=== PATIENT | female | born 1980 | race Caucasian/White ===

== ENCOUNTER 2020-08-16 09:35 | Outpatient (CLI) | payer BC, SELFPAY ==
--- NOTE | ~2020-08-16 | MM_ITS ---
EXAMINATION: MM screening abdias BI w freddy HISTORY: Screening TECHNIQUE: Craniocaudal and mediolateral oblique 3-D tomosynthesis images were obtained and synthetic 2-D images were generated. CAD analysis was submitted and interpreted. COMPARISON: No prior mammogram is available for comparison at this institution. BREAST PARENCHYMAL COMPOSITION: The breasts are heterogeneously dense, which may obscure small masses . FINDINGS: There is no evidence of suspicious mass, calcification, or architectural distortion to sugg est malignancy in either breast. There has been no suspicious interval change. IMPRESSION: 1. No mammographic evidence of malignancy. 2. Recommend routine screening mammography in one year. BI-RADS Category 1: Negative Reviewed, dictated and finalized at location A.
== END 2020-08-16 09:36 | disposition home or self-care (01) ==
LOC: ANHIMG 09:37
PROVIDERS: PCP Family Medicine; Visit Provider Obstetrics & Gynecology
DX: Z12.31 Encounter for screening mammogram for malignant neoplasm of breast (principal)
CPT/HCPCS: 77063; 77067

== ENCOUNTER 2021-12-26 10:46 | Outpatient (CLI) | payer BC, SELFPAY ==
--- NOTE | ~2021-12-26 | MM_ITS ---
EXAMINATION: MM screening abdias BI w freddy HISTORY: Screening mammogram TECHNIQUE: Craniocaudal and mediolateral oblique 3-D tomosynthesis images were obtained and synthetic 2-D images were generated. Bilateral rotated lateral CC views. CAD analysis was submitted and interp reted. COMPARISON: 08/16/2020 bilateral screening mammogram BREAST PARENCHYMAL COMPOSITION: The breasts are heterogeneously dense, which may obscure small masses . FINDINGS: Circumscribed lymph nodes in upper outer right breast. There is no evidence of suspicious mass, calcification, or architectural distortion to suggest malignancy in either breast. There has b een no suspicious interval change. IMPRESSION: 1. No mammographic evidence of malignancy. 2. Recommend routine screening mammography in one year. BI-RADS Category 2: Benign finding(s). Reviewed, dictated and finalized at location A. ING MACHINE PILOT CAN ROUTER
== END 2021-12-26 10:47 | disposition home or self-care (01) ==
LOC: ANHIMG 10:49
PROVIDERS: PCP Family Medicine; Visit Provider Obstetrics & Gynecology
DX: Z12.31 Encounter for screening mammogram for malignant neoplasm of breast (principal)
CPT/HCPCS: 77063; 77067

== ENCOUNTER 2024-08-25 09:16 | Outpatient (CLI) | payer BC, SELFPAY ==
--- NOTE | ~2024-08-25 | MM_ITS ---
EXAMINATION: MM screening abdias BI w freddy HISTORY: Screening TECHNIQUE: Craniocaudal and mediolateral oblique 3-D tomosynthesis images were obtained and synthetic 2-D images were generated. CAD analysis was submitted and interpreted. COMPARISON: Comparison to multiple prior studies sequentially, with oldest reviewed study dated 08/01. BREAST PARENCHYMAL COMPOSITION: Dense: The breasts are extremely dense, which lowers the sensitivity of mammography. FINDINGS: There is no evidence of suspicious mass, calcification, or architectural distortion to sugg est malignancy in either breast. There has been no suspicious interval change. IMPRESSION: 1. No mammographic evidence of malignancy. 2. Recommend routine screening mammography in one year. BI-RADS Category 1: Negative Reviewed, dictated and finalized at location B.
== END 2024-08-25 09:17 | disposition home or self-care (01) ==
LOC: ANHIMG 09:17
PROVIDERS: Visit Provider Nurse Practitioner Obstetrics & Gynecology
DX: Z12.31 Encounter for screening mammogram for malignant neoplasm of breast (principal)
CPT/HCPCS: 77063; 77067

== ENCOUNTER 2025-04-06 09:01 | Outpatient (CLI) | payer BC, SELFPAY ==
--- NOTE | ~2025-04-06 | US_ITS ---
EXAMINATION: US pelvic complete w TV INDICATION: Left ovarian cyst seen on CT Comparison:No prior studies for comparison. TECHNIQUE: Multiple transabdominal and endovaginal sonographic images of the pelvis performed. FINDINGS: The uterus measures 8.3 x 4.1 x 5.1 cm. The endometrial complex measures 6 mm. The right ovary measures 2 x 2.1 x 1.9 cm and the left ovary measures 3.1 x 1.5 x 1.9 cm. There are s mall cysts of the right ovary, largest measuring 1.6 cm. There are small follicles in each ovary. Nor mal doppler signal in both ovaries. There is no free fluid in the pelvis. There are no abnormal masses seen on either side. IMPRESSION: 1. Small simple right ovarian cysts, largest measuring 1.6 cm. Reviewed, dictated and finalized at location A.
== END 2025-04-06 09:02 | disposition home or self-care (01) ==
LOC: GOSHIMG 09:02
PROVIDERS: Visit Provider Nurse Practitioner Obstetrics & Gynecology
DX: N83.291 Other ovarian cyst, right side (principal)
CPT/HCPCS: 76830; 76856

== ENCOUNTER 2025-08-31 08:52 | Outpatient (CLI) | payer BC, SELFPAY ==
--- NOTE | ~2025-08-31 | MM_ITS ---
EXAMINATION: MM screening abdias BI w freddy HISTORY: Screening TECHNIQUE: Craniocaudal and mediolateral oblique 3-D tomosynthesis images were obtained and synthetic 2-D images were generated. CAD analysis was submitted and interpreted. COMPARISON: Comparison to multiple prior studies sequentially, with oldest reviewed study dated 08/16/2020. BREAST PARENCHYMAL COMPOSITION: Dense: The breasts are extremely dense, which lowers the sensitivity of mammography. FINDINGS: There is no evidence of suspicious mass, calcification, or architectural distortion to suggest malignancy in either breast. There has been no suspicious interval change. IMPRESSION: 1. No mammographic evidence of malignancy. 2. Recommend routine screening mammography in one year. BI-RADS Category 1: Negative Reviewed, dictated and finalized at location C.
--- OUTSIDE RECORDS SUMMARY | 2025-08-31 09:09 | XMS_ITS | Clinical Summary ---
Author Organization [facility] Address [address] [place] [address] Phone Care Team Providers Care Linux Support Engineer Name Role Phone Jeremiah Lees MD Unavailable [phone] Elmira Nielsen APRN, CIGAR PACKER Primary Care Provider + Colten Santa MD Unavailable Allergies No known active allergies Medications Cetirizine HCl 10 MG Capsule Take by mouth. Active Multiple Vitamin (MULTI-VITAMINS ) Tablet Take 1 Tab by mouth. Active VITAMIN D PO Take by mouth. Active melatonin 3 MG Tablet Take 3 mg by mouth nightly. Active Skyrizi Pen 150 MG/ML Solution Auto-injector every 90 days. 2 Active baclofen (LIORESAL) 10 MG Tablet 2 times daily. 2 Active Psyllium (METAMUCIL PO) Take by mouth as needed. Active minoxidil (LONITEN) 2.5 MG Tablet Take 1.25 mg by mouth every morning. 4 Active losartan (COZAAR) 25 MG TabletIndicatio ns:Hypertension , unspecified type TAKE 1 TABLET BY MOUTH EVERY DAY 90 Tablet 1 5 Active Mirabegron ER (Myrbetriq) 50 MG TABLET SR 24 HR Take 50 mg by mouth daily. 90 Tablet 3 5 Active sertraline (ZOLOFT) 50 MG TabletIndicatio ns:Anxiety TAKE 1 TABLET BY MOUTH EVERY DAY 90 Tablet 1 5 Active sertraline (ZOLOFT) 50 MG TabletIndicatio ns:Anxiety Take 1 Tablet by mouth daily. 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 Chronic seasonal allergic rhinitis due to pollen 09/30/2017 Constipation 09/30/2017 Weakness of both lower extremities 03/31/2017 Well adult exam 03/31/2017 Encounters Date Type Department Care Team Description 08/17[facility] [place] [facility] [place] [address] Elmira Nielsen APRN, CIGAR PACKER Medication Refill 06/15/2025 9:45 AM CDT Office Visit [facility] [place] [address] [place] [address] Elmira Nielsen APRN, CIGAR PACKER Essential hypertension (Primary Dx); Anxiety; Hereditary spastic paraparesis (HCC); Urge incontinence Discharge Disposition: Discharged to home or Selfcare 06/15/2025 Travel from Last 3 Months Immunizations Immunization Administration Dates Next Due Covid-19, Mrna, Lnp-s, Pf, 3 0 Mcg/0.3 Ml Dose ([facility]) 02/16/2021,01/26/2021 Influenza Seasonal, Intrader mal, Preservative Free 11/16/2012 Influenza Vaccine 08/09/2017,09/18/2016,09/05/20 15 Influenza Vaccine greater than 3 yrs 08/20/2020, 07/02/2014 Influenza Vaccine, MDCK,quad rivalent, pres free 08/20/2020 Influenza Vaccine, Quadrivalent, PF 09/01,08/28/2021,08/22/2019,2017 Influenza, Seasonal, Injecta ble, Undefined 07/17/2014,07/02/2014,08/23/2013 RHO D IG FULL DOSE 300 MCG IM 05/29/2016 TDAP Vaccine 05/30/2016,10/03/2013 Family History Medical History Relation Name Comments No Known Problems Brother 1 No Known Problems Brother 2 Cancer Father Diabetes Father HSP Father Prostate Cancer Father Breast Cancer Maternal Aunt Cancer Maternal Aunt breast Heart Attack Mother Cancer Paternal Grandfather Heart Attack Paternal Grandmother Other-comment Paternal Grandmother No Known Problems Son 1 No Known Problems Son 2 Relation Name Status Comments Brother 1 Alive Brother 2 Alive Father Alive Maternal Aunt Maternal Grandfather Maternal Grandmother Mother Alive Paternal Grandfather Paternal Grandmother Son 1 Alive Son 2 Alive Social History Tobacco Use Types Packs/Day Years Used Date Smoking Tobacco: Never Smokeless Tobacco: Never Alcohol Use Standard Drinks/Week Comments No 0 (1 standard drink = 0.6 oz pur e alcohol) PHQ-2 Answer Date Recorded Total Score - Questions 1-9 0 06/01 Education Answer Date Recorded What is the highest level of school you have completed or the highest degree you have received? Bachelor's degree (e.g., BA, AB, BS) 08/26/2023 Sexually Active Control Partners Comments Yes Male Comments No Sex and Gender Information Value Date Recorded Sex Assigned at Female 11/29/2024 6:18 AM AGRICULTURAL RESEARCHER Legal Sex Female 10:06 PM CDT Gender Identity Female 11/29/2024 6:18 AM AGRICULTURAL RESEARCHER Sexual Orientation Not on file Last Filed Vital Signs Vital Sign Reading Time Taken Comments Blood Pressure 116/84 06/15/2025 9:42 AM CDT Pulse 59 06/15/2025 9:42 AM CDT Temperature 36.4 C (97.5 F) 06/15/2025 9:42 AM CDT Respiratory Rate 18 06/15/2025 9:42 AM CDT Oxygen Saturation 99% 06/15/2025 9:42 AM CDT Inhaled Oxygen Concentration - - Weight 56.4 kg (124 lb 6.4 oz) 06/15/2025 9:42 A M CDT Height 157.5 cm (5' 2) 06/15/2025 9:42 AM CDT Body Mass Index 22.75 06/15/2025 9:42 AM CDT Plan of Treatment Upcoming Encounters Date Type Department Care Team (Late st Contact Info) Description 12/14/2025 9:30 AM AGRICULTURAL RESEARCHER [facility] Visit [facility] [place] [address] [facility] [address] Elmira Nielsen, PRACTICE NURSE, CIGAR PACKER [address] [facility] [address] 04/19/2026 10:00 AM CDT Office Visit [facility] [address] [place] [address] Jeremiah Lees MD [address], [address] [address] Health Maintenance Due Date Last Done Comments Hepatitis B Immunization (1 of 3 - 19+ 3-dose series) 1998 Mammogram 12/26/2022 12/26/2021, 08/16/2020 Cologuard 2024 Immunochemical Fecal Occult Blood 2024 Influenza Immunization (#1) 07/02/202509/01, 08/28/2021, 08/20/2020, Additional history exists SARS-COV-2 Immunization (2024- season) 2025 11/16/2021, 02/16/2021, 01/26/2021 Td Immunization Every 10 Years (Adults With 1 Tdap) 05/30/2026 05/30/2016, 10/03/2013 Pap Smear 03/16/2028 03/16/2025, 07/03/2020 Cervical Cancer Screening (CCS) 03/16/2030 HPV/Cotest 03/16/2030 03/16/2025 Colonoscopy 12/28/2034 12/28/2024, 12/28/2024 Colorectal Cancer Screening 12/28/2034 Respiratory Syncytial Virus (RSV) Immunization (Adult) (1 - 1-dose 75+ series) 2054 Discussion re Starting/Frequency of Mammograms Completed 12/26/2021, 08/16/2020 Hepatitis C Virus (HCV) Screening Completed 01/08/2025 Human Papillomavirus (HPV) Immunization Aged Out No longer eligible based on patient's age to complete this topic Meningococcal Immunization (ACWY) Aged Out No longer eligible based on patient's age to complete this topic Pneumococcal Immunization Combined Aged Out No longer eligible based on patient's age to complete this topic Rotavirus Immunization Aged Out No lo nger eligible based on patient's age to complete this topic Procedures Procedure Name Priority Date/Time Associated Diagnosis Comments HUMAN PAPILLOMA VIRUS (HPV) 03/16/2025 12:00 AM CDT PATHOLOGY CYTOLOGY CITY CONTROLLER 03/16/2025 12:00 AM CDT HEPATITIS C ANTIBODY Routine 01/08/2025 8:22 AM CDT Need for hepatitis C screening test MAMMOGRAM BILATERAL GENERIC 12/26/2021 12:00 AM AGRICULTURAL RESEARCHER from Last 3 Months or Most Recently Relevant to Health Maintenance Results * PATHOLOGY CYTOLOGY CITY CONTROLLER (03/16/2025 12:00 AM CDT) 03/16/2025 us Provider Scan PATHOLOGY/CYTOLOGY ORDERABLES Fi nal Result SCAN * HUMAN PAPILLOMA VIRUS (HPV) (03/16/2025 12:00 AM CDT) 03/16/2025 us Provider Scan LAB SEND OUTS Final Result SCAN * HEPATITIS C ANTIBODY (01/08/2025 8:22 AM CDT) hepatitis C antibody 0.25 <1 S/CO 01/08/2025 2:43 PM CDT [facility] Comment: Signal/Cutoff ratio < 0.79 is Nondetected Signal/Cutoff ratio 0.80-0.99 is Grayzone Signal/Cutoff ratio > 0.99 is Detected Supplemental assays are recommended if signal/cutoff ratio is >/=1.00. Signal/cutoff ratio result >/= 5.00 is 97% predictive of positivity for recombinant immunoblot assay (RIBA) and will be reported to the [place] Department of Public [facility] as required. Blood Venipuncture / Unknown 01/08/2025 8:22 AM CDT 01/08/2025 8:31 AM CDT us Elmira Nielsen APRN, CNP CHEMISTRY ORDERABLES Fin al Result Performing Organization Address City/[facility]/ZIP Co de Phone Number [facility] [address] [place] [address], [place] * MAMMOGRAM BILATERAL MISCELLANEOUS (12/26/2021 12:00 AM AGRICULTURAL RESEARCHER) 12/26/2021 us Not On File Provider IMG MAMMO ORDERABLES Final Result SCAN from Last 3 Months or Most Recently Relevant to Health Maintenance Insurance [facility] Advance Directives * Full Code (Latest Code Status on File) Date Activated Date Inactivated Comments 05/28/2016 5:46 AM 05/30/2016 3:00 PM CPR-Full Rodrigo atment: FULL ARREST: Attempt Resuscitation/CPR wit intubation and mechanical ventilation. PRE-ARREST: Use entire range of life support measures to stabilize the patient. Care Teams Linux Support Engineer Relationship Specialty Start Date End Date Elmira Nielsen APRN, CINTHIA [address] [place] [address] PCP - General Advanced Practice Nurse 03/03/24 Jeremiah Lees MD [address]2 [facility] [address] [place] [address] Consulting Physician Urology 08/12/22 Colten Santa MD [address]2 [facility] [address] [place] [address] Consulting Physician Colon and Rectal Surgery 10/23/24
--- OUTSIDE RECORDS SUMMARY | 2025-08-31 09:09 | XMS_ITS | Encounter Summary ---
Author Organization [facility] Address [address] [place] [address] Phone Care Team Providers Care Nuclear Medical Technologist Name Role Phone Zoe Patel MD Primary Care Provider Jessi Wilson MD Unavailable [phone] Jeremiah Lees MD Unavailable [phone] Elmira Nielsen COLOR ADVISER, PEN OR PENCIL ASSEMBLY MACHINE OPERATOR Primary Care Provider + Colten Santa MD Unavailable Reason for Visit * Reason Comments Medication Refill Encounter Details Date Type Department Care Team (Late st Contact Info) Description 06/24/2022 [facility]ill [facility] [address] [facility] [place] [address] Nhan Owens MD [address]2 [facility], [address] [address] Medication Refill Social History Tobacco Use Types Packs/Day Years Used Date Smoking Tobacco: Never Smokeless Tobacco: Never Alcohol Use Standard Drinks/Week Comments No 0 (1 standard drink = 0.6 oz pur e alcohol) PHQ-2 Answer Date Recorded Total Score - Questions 1-9 0 /11/2021 Sexually Active Control Partners Comments Yes Male Comments No Sex and Gender Information Value Date Recorded Sex Assigned at Female 11/29/2024 6:18 AM LABOR EMPLOYMENT ASSOCIATE Legal Sex Female 10:06 PM CDT Gender Identity Female 11/29/2024 6:18 AM LABOR EMPLOYMENT ASSOCIATE Sexual Orientation Not on file documented as of this encounter Miscellaneous Notes * Telephone Encounter - Nhan Owens MD - 07/02/2022 9:03 AM CDT Patient last seen by Dr. Hahn in 05/2021. Recommend follow-up in the office before refilling oxybutynin. * Telephone Encounter - Libby Rangel RN - 06/25/2022 2:16 PM CDT Medication failed the protocol, provider to review and approve the medication order if appropriate. Requested Prescriptions Pending Prescriptions Disp Refills oxybutynin (DITROPAN) 5 MG Tablet [Pharmacy Med Name: OXYBUTYNIN 5 MG TABLET] 180 Tablet 1 Sig: TAKE 1 TABLET BY MOUTH TWICE A DAY Urinary Anticholinergics Protocol Failed - 06/24/2022 7:52 PM Failed - GFR greater than or equal to 30 in past 12 months No results found for: GFRNA Passed - Visit with relevant provider in past 12 months or upcoming 90 days Recent Visits Date Type Provider Dept 02/19/22 [facility] Office Visit Zoe Patel MD [facility] [place] Showing recent visits within past 365 days and meeting all other requirements Future Appointments Date Type Provider Dept 08/20/22 Appointment Zoe Patel MD [facility] Showing future appointments within next 90 days and meeting all other requirements documented in this encounter Plan of Treatment Upcoming Encounters Date Type Department Care Team (Late st Contact Info) Description 12/14/2025 9:30 AM LABOR EMPLOYMENT ASSOCIATE Office Visit [facility] - Family Medicine - [place] [address] [place] [address] Elmira Nielsen, COLOR ADVISER, PEN OR PENCIL ASSEMBLY MACHINE OPERATOR [address] [place] [address] 04/19/2026 10:00 AM CDT Office Visit [facility] [address] [place] [address] Jeremiah Lees MD [address] [facility] [address] [place] [address] documented as of this encounter Visit Diagnoses Diagnosis Urge incontinence documented in this encounter Additional Health Concerns Infection Onset Date Last Indicated Resolved Time Respiratory Rule-Out 11/29/2024 11/29/2024 025 8:55 AM LABOR EMPLOYMENT ASSOCIATE COVID - 19 11/29/2024 11/29/2024 11/29/2024 8:55 AM LABOR EMPLOYMENT ASSOCIATE Influenza 11/29/2024 11/29/2024 12/06/2024 12:1 6 AM LABOR EMPLOYMENT ASSOCIATE Assessment Noted Time PHQ-9 Depression Total Score: 0 02/20/20 22 8:00 AM CDT documented as of this encounter Care Teams Nuclear Medical Technologist Relationship Specialty Start Date End Date Zoe Patel MD PCP - General Family Medicine 03/31/17 03/02/24 Elmira Nielsen, COLOR ADVISER, PEN OR PENCIL ASSEMBLY MACHINE OPERATOR [address] [place] [address] PCP - General Advanced Practice Nurse 03/03/24 Jessi Wlison MD Obstetrics & Gynecology 07/25/19 Jeremiah Lees MD [address] [address] [place] [address] Consulting Physician Urology 08/12/22 Colten Santa MD [address] [place] [id number] Consulting Physician Colon and Rectal Surgery 10/23/24 documented as of this encounter
--- OUTSIDE RECORDS SUMMARY | 2025-08-31 09:09 | XMS_ITS | Encounter Summary ---
Author Organization [facility] Address [address] [place] [address] Phone Care Team Providers Care Manager Brand Name Role Phone Zoe Patel MD Primary Care Provider Jessi Wilson MD Unavailable [phone] Jeremiah Lees MD Unavailable [phone] Elmira Nielsen APRN, ARABIC LINGUIST Primary Care Provider + Colten Santa MD Unavailable Reason for Visit * Reason Comments Medication Refill Encounter Details Date Type Department Care Team (Late st Contact Info) Description 06/22/2023 Refill [facility] - Family [facility] [address] [place] [id number] [place] [address] [place] [address] Medication Refill Social History Tobacco Use Types Packs/Day Years Used Date Smoking Tobacco: Never Smokeless Tobacco: Never Alcohol Use Standard Drinks/Week Comments No 0 (1 standard drink = 0.6 oz pur e alcohol) PHQ-2 Answer Date Recorded Total Score - Questions 1-9 0 01/31 Sexually Active Control Partners Comments Yes Male Comments No Sex and Gender Information Value Date Recorded Sex Assigned at Female 11/29/2024 6:18 AM TEST ENG Legal Sex Female 10:06 PM CDT Gender Identity Female 11/29/2024 6:18 AM TEST ENG Sexual Orientation Not on file documented as of this encounter Miscellaneous Notes * Telephone Encounter - Luciana Mei RN - 06/22/2023 11:19 AM CDT Medication failed the protocol, provider to review and approve the medication order if appropriate. Requested Prescriptions Pending Prescriptions Disp Refills losartan (COZAAR) 25 MG Tablet [Pharmacy Med Name: LOSARTAN POTASSIUM 25 MG TAB] 90 Tablet 1 Sig: TAKE 1 TABLET BY MOUTH EVERY DAY ARB Protocol Failed - 06/22/2023 6:33 AM Failed - Serum potassium on record in past 12 months No results found for: POTASSIUM, POCTK Failed - GFR on record in past 12 months No results found for: GFRNA Passed - BP on record in the past year Clinician-entered: BP Readings from Last 3 Encounters: 02/25/23 108/68 08/20/22 118/72 08/14/22 100/78 Patient-entered: No data recorded Passed - No positive test in the past 12 months or most recent test was negative Passed - Visit with relevant provider in past year or upcoming 90 days Recent Visits Date Type Provider Dept 02/25/23 Office Visit Zoe Patel MD [facility] 08/20/22 Office Visit Zoe Patel MD [facility] Showing recent visits within past 365 days and meeting all other requirements Future Appointments Date Type Provider Dept 08/26/23 Appointment Zoe Patel MD [facility] Showing future appointments within next 90 days and meeting all other requirements Passed - No active on record documented in this encounter Plan of Treatment Upcoming Encounters Date Type Department Care Team (Late st Contact Info) Description 12/14/2025 9:30 AM TEST ENG Office Visit [facility] - Family Medicine [place] [address] [place] [address] Elmira Nielsen, HOSPITAL LIBRARIAN, ARABIC LINGUIST [address] [place] [address] 04/19/2026 10:00 AM CDT Office Visit [facility] UR[facility]Y [address] [place] [id number] Jeremiah Lees MD [address] [place] [facility] [address] [place] [address] documented as of this encounter Visit Diagnoses Diagnosis Hypertension, unspecified type documented in this encounter Additional Health Concerns Infection Onset Date Last Indicated Resolved Time Respiratory Rule-Out 11/29/2024 11/29/2024 025 8:55 AM TEST ENG COVID - 19 11/29/2024 11/29/2024 11/29/2024 8:55 AM TEST ENG Influenza 11/29/2024 11/29/2024 12/06/2024 12:1 6 AM TEST ENG Assessment Noted Time PHQ-9 Depression Total Score: 0 02/20/20 22 8:00 AM CDT documented as of this encounter Care Teams Manager Brand Relationship Specialty Start Date End Date Zoe Patel MD PCP - General Family Medicine 03/31/17 03/02/24 Elmira Nielsen, HOSPITAL LIBRARIAN, ARABIC LINGUIST [address] [place] [address] PCP - General Advanced Practice Nurse 03/03/24 Jessi Wilson MD Obstetrics & Gynecology 07/25/19 Jeremiah Lees MD [address] [place] [facility] [address] [place] [address] Consulting Physician Urology 08/12/22 Colten Santa MD [address] [address] Consulting Physician Colon and Rectal Surgery 10/23/24 documented as of this encounter
--- OUTSIDE RECORDS SUMMARY | 2025-08-31 09:09 | XMS_ITS | Encounter Summary ---
Author Organization [facility] Address [address] [place] [address] Phone Care Team Providers Care Chief Scientific Officer Name Role Phone Jessi Wilson MD Unavailable [phone] Jeremiah Lees MD Unavailable [phone] Elmira Nielsen APRN, [facility] Primary Care Provider + Colten Santa MD Unavailable Reason for Visit * Reason Comments Medication Refill Encounter Details Date Type Department Care Team (Late st Contact Info) Description 03/17/2024 Refill [facility] - Family Medicine [facility] [address]2 [place] [address] [place] [address] [place] [address] Medication Refill Social History Tobacco Use Types Packs/Day Years Used Date Smoking Tobacco: Never Smokeless Tobacco: Never Alcohol Use Standard Drinks/Week Comments No 0 (1 standard drink = 0.6 oz pur e alcohol) PHQ-2 Answer Date Recorded Total Score - Questions 1-9 2 12/2023 Education Answer Date Recorded What is the highest level of school you have completed or the highest degree you have received? Bachelor's degree (e.g., BA, AB, BS) 08/26/2023 Sexually Active Control Partners Comments Yes Male Comments No Sex and Gender Information Value Date Recorded Sex Assigned at Female 11/29/2024 6:18 AM TRIAGE REGISTER NURSE Legal Sex Female 10:06 PM CDT Gender Identity Female 11/29/2024 6:18 AM TRIAGE REGISTER NURSE Sexual Orientation Not on file documented as of this encounter Miscellaneous Notes * Telephone Encounter - Luciana Mei RN - 03/17/2024 10:17 AM CDT Medication failed the protocol, provider to review and approve the medication order if appropriate. Requested Prescriptions Pending Prescriptions Disp Refills losartan (COZAAR) 25 MG Tablet [Pharmacy Med Name: LOSARTAN POTASSIUM 25 MG TAB] 90 Tablet 1 Sig: TAKE 1 TABLET BY MOUTH EVERY DAY ARB Protocol Failed - 03/17/2024 10:09 AM Failed - Serum potassium on record in past 12 months No results found for: POTASSIUM, POCTK Failed - GFR on record in past 12 months No results found for: GFRNA Passed - BP on record in the past year Clinician-entered: BP Readings from Last 3 Encounters: 03/03/24 114/80 12/10/23 126/89 08/26/23 110/82 Patient-entered: No data recorded Passed - No positive test in the past 12 months or most recent test was negative Passed - Visit with relevant provider in past year or upcoming 90 days Recent Visits Date Type Provider Dept 03/03/24 Office Visit Elmira Nielsen APRN, [facility] Blu 08/26/23 Office Visit Zoe Patel MD [facility] Showing recent visits within past 365 days and meeting all other requirements Future Appointments No visits were found meeting these conditions. Showing future appointments within next 90 days and meeting all other requirements Passed - No active on record documented in this encounter Plan of Treatment Upcoming Encounters Date Type Department Care Team (Late st Contact Info) Description 12/14/2025 9:30 AM TRIAGE REGISTER NURSE Office Visit [facility] - Family Medicine [address] [place] [address] Elmira Nielsen APRN, BUYING AGENT [address]2 [place] [address] 04/19/2026 10:00 AM CDT [facility] [address] [place] [address] Jeremiah Lees MD [address] [facility] [address] [place] [address] documented as of this encounter Visit Diagnoses Diagnosis Hypertension, unspecified type documented in this encounter Additional Health Concerns Infection Onset Date Last Indicated Resolved Time Respiratory Rule-Out 11/29/2024 11/29/2024 025 8:55 AM TRIAGE REGISTER NURSE COVID - 19 11/29/2024 11/29/2024 11/29/2024 8:55 AM TRIAGE REGISTER NURSE Influenza 11/29/2024 11/29/2024 12/06/2024 12:1 6 AM TRIAGE REGISTER NURSE Assessment Noted Time PHQ-9 Depression Total Score: 2 03/03/20 24 9:00 AM CDT documented as of this encounter Care Teams Chief Scientific Officer Relationship Specialty Start Date End Date Elmira Nielsen, CONVENTIONS ASSISTANT, BUYING AGENT #[address] [place] [address] PCP - General Advanced Practice Nurse 03/03/24 Jessi Wilson MD Obstetrics & Gynecology 07/25/19 Jeremiah Lees MD [address] [facility] [address] [place] [address] Consulting Physician Urology 08/12/22 Colten Santa MD [address] [facility] [address] [place] [address] Consulting Physician Colon and Rectal Surgery 10/23/24 documented as of this encounter
--- OUTSIDE RECORDS SUMMARY | 2025-08-31 09:09 | XMS_ITS | Encounter Summary ---
Author Organization [facility] Address [address] [place] [address] Phone Care Team Providers Care Electrophysiology Scientist Name Role Phone Zoe Patel MD Primary Care Provider Jessi Wilson MD Unavailable [phone] Jeremiah Lees MD Unavailable [phone] Elmira Nielsen RECORD CHANGER ASSEMBLER, CLINICAL DATA ABSTRACTOR Primary Care Provider + Colten Santa MD Unavailable Reason for Visit * Reason Comments Medication Refill Encounter Details Date Type Department Care Team (Late st Contact Info) Description 11/19/2021 Refill [facility] - Family Medicine [facility] [address]2 [place] [phone] Bayron Hayes MD [address]2 [place] [address] Medication Refill Social History Tobacco Use Types Packs/Day Years Used Date Smoking Tobacco: Never Smokeless Tobacco: Never Alcohol Use Standard Drinks/Week Comments No 0 (1 standard drink = 0.6 oz pur e alcohol) PHQ-2 Answer Date Recorded Total Score - Questions 1-9 0 04/02 Sexually Active Control Partners Comments Yes Male Comments No Sex and Gender Information Value Date Recorded Sex Assigned at Female 11/29/2024 6:18 AM BODY AND FENDER MECHANIC Legal Sex Female 10:06 PM CDT Gender Identity Female 11/29/2024 6:18 AM BODY AND FENDER MECHANIC Sexual Orientation Not on file documented as of this encounter Miscellaneous Notes * Telephone Encounter - Nhan Owens MD - 11/19/2021 4:52 PM CST Okay to prescribe. Follow-up in the office if she has not been seen in the past 6 months. AND FENDER MECHANIC * Telephone Encounter - Mayda Michelle RN - 11/19/2021 9:40 AM CST Medication failed the protocol, provider to review and approve the medication order if appropriate. Requested Prescriptions Pending Prescriptions Disp Refills oxybutynin (DITROPAN) 5 MG Tablet [Pharmacy Med Name: OXYBUTYNIN 5 MG TABLET] 180 Tablet 1 Sig: TAKE 1 TABLET BY MOUTH TWICE A DAY Urinary Anticholinergics Protocol Failed - 11/19/2021 12:01 AM Failed - GFR greater than or equal to 30 in past 12 months GFR, EST. NONAFRICAN Date Value Ref Range Status 01/18/2020 >60 >=60 Final Passed - Visit with relevant provider in past 12 months or upcoming 90 days Recent Visits Date Type Provider Dept 08/21/21 Office Visit Zoe Patel MD [facility] 02/20/21 Office Visit Zoe Patel MD [facility] Blu Showing recent visits within past 365 days and meeting all other requirements Future Appointments No visits were found meeting these conditions. Showing future appointments within next 90 days and meeting all other requirements AND FENDER MECHANIC documented in this encounter Plan of Treatment Upcoming Encounters Date Type Department Care Team (Late st Contact Info) Description 12/14/2025 9:30 AM BODY AND FENDER MECHANIC Office Visit [facility] Medical Group - Family Medicine - Blu [address] [place] [address] Elmira Nielsen, RECORD CHANGER ASSEMBLER, CLINICAL DATA ABSTRACTOR #[address] [place] [address] 04/19/2026 10:00 AM CDT Office Visit [facility] #2 [place] [address] Jeremiah Lees MD [address] [address] documented as of this encounter Visit Diagnoses Diagnosis Urge incontinence documented in this encounter Additional Health Concerns Infection Onset Date Last Indicated Resolved Time Respiratory Rule-Out 11/29/2024 11/29/2024 025 8:55 AM BODY AND FENDER MECHANIC COVID - 19 11/29/2024 11/29/2024 11/29/2024 8:5 5 AM BODY AND FENDER MECHANIC Influenza 11/29/2024 11/29/2024 12/06/2024 12:1 6 AM BODY AND FENDER MECHANIC Assessment Noted Time PHQ-9 Depression Total Score: 0 04/22/20 20 8:00 AM CDT documented as of this encounter Care Teams Electrophysiology Scientist Relationship Specialty Start Date End Date Zoe Patel MD PCP - General Family Medicine 03/31/17 03/02/24 Elmira Nielsen, RECORD CHANGER ASSEMBLER, CLINICAL DATA ABSTRACTOR [address] [place] [address] PCP - General Advanced Practice Nurse 03/03/24 Jessi Wilson MD Obstetrics & Gynecology 07/25/19 Jeremiah Lees MD [address] [address] Consulting Physician Urology 08/12/22 Colten Santa MD [address] [address] Consulting Physician Colon and Rectal Surgery 10/23/24 documented as of this encounter
--- OUTSIDE RECORDS SUMMARY | 2025-08-31 09:09 | XMS_ITS | Encounter Summary ---
Author Organization [facility] Address [address] [place] [address] Phone Care Team Providers Care Joint Runner Name Role Phone Zoe Patel MD Primary Care Provider Jessi Wilson MD Unavailable [phone] Jeremiah Lees MD Unavailable [phone] Elmira Nielsen TUBE FORMER OPERATOR, WEB MASTER Primary Care Provider + Colten Santa MD Unavailable Reason for Visit * Reason Comments Medication Refill Encounter Details Date Type Department Care Team (Late st Contact Info) Description 09/30/2023 Refill [facility] [address] [place] [address] Jeremiah Lees MD [address], [address] [address] Medication Refill Social History Tobacco Use Types Packs/Day Years Used Date Smoking Tobacco: Never Smokeless Tobacco: Never Alcohol Use Standard Drinks/Week Comments No 0 (1 standard drink = 0.6 oz pur e alcohol) PHQ-2 Answer Date Recorded Total Score - Questions 1-9 0 01/31 Education Answer Date Recorded What is the highest level of school you have completed or the highest degree you have received? Bachelor's degree (e.g., BA, AB, BS) 08/26/2023 Sexually Active Control Partners Comments Yes Male Comments No Sex and Gender Information Value Date Recorded Sex Assigned at Female 11/29/2024 6:18 AM MUSEUM GUIDE Legal Sex Female 10:06 PM CDT Gender Identity Female 11/29/2024 6:18 AM MUSEUM GUIDE Sexual Orientation Not on file documented as of this encounter Miscellaneous Notes * Telephone Encounter - Christine Wyatt - 10/07/2023 9:35 AM CST Left message for pt to call back. UM GUIDE * Telephone Encounter - Christine Wyatt - 10/05/2023 10:53 AM CST Left message for pt to call back. UM GUIDE documented in this encounter Plan of Treatment Upcoming Encounters Date Type Department Care Team (Late st Contact Info) Description 12/14/2025 9:30 AM MUSEUM GUIDE [facility] #2 [place] [address] Elmira Nielsen APRN, WEB MASTER [address] [place] [address] 04/19/2026 10:00 AM CDT Office Visit [facility] #2 [place] [address] Jeremiah Lees MD #[address] [address] documented as of this encounter Visit Diagnoses Not on filedocumented in this encounter Additional Health Concerns Infection Onset Date Last Indicated Resolved Time Respiratory Rule-Out 11/29/2024 11/29/2024 025 8:55 AM MUSEUM GUIDE COVID - 19 11/29/2024 11/29/2024 11/29/2024 8:55 AM MUSEUM GUIDE Influenza 11/29/2024 11/29/2024 12/06/2024 12:1 6 AM MUSEUM GUIDE Assessment Noted Time PHQ-9 Depression Total Score: 0 02/20/20 8:00 AM CDT documented as of this encounter Care Teams Joint Runner Relationship Specialty Start Date End Date Zoe Patel MD PCP - General Family Medicine 03/31/17 03/02/24 Elmira Nielsen, TUBE FORMER OPERATOR, WEB MASTER [address] [place] [address] PCP - General Advanced Practice Nurse 03/03/24 Jessi Wilson MD Obstetrics & Gynecology 07/25/19 Jeremiah Lees MD #2 [facility] [address] [place] [address] Consulting Physician Urology 08/12/22 Colten Santa MD #2 [facility] [address] [place] [address] Consulting Physician Colon and Rectal Surgery 10/23/24 documented as of this encounter
--- OUTSIDE RECORDS SUMMARY | 2025-08-31 09:09 | XMS_ITS | Encounter Summary ---
Author Organization [facility] Address [address] [place] [address] Phone Care Team Providers Care Timber Sizer Operator Name Role Phone Zeo Patel MD Primary Care Provider Jessi Wilson MD Unavailable [phone] Jeremiah Lees MD Unavailable [phone] Elmira Nielsen E/M ENGINEER, COTTON TIER Primary Care Provider + Colten Santa MD Unavailable Reason for Visit * Reason Comments Medication Refill Encounter Details Date Type Department Care Team (Late st Contact Info) Description 11/09/2023 Refill [facility] [address] [place] [address] Jeremiah Lees MD [address] [facility], [address] [address] Medication Refill Social History Tobacco Use Types [...] Sex Assigned at Female 11/29/2024 6:18 AM CRAB FISHER Legal Sex Female 10:06 PM CDT Gender Identity Female 11/29/2024 6:18 AM CRAB FISHER Sexual Orientation Not on file documented as of this encounter Miscellaneous Notes * Telephone Encounter - Christine Love RN - 11/09/2023 12:28 PM CRAB FISHER Medication failed the protocol, provider to review and approve the medication order if appropriate. Requested Prescriptions Pending Prescriptions Disp Refills oxybutynin (DITROPAN) 5 MG Tablet [Pharmacy Med Name: OXYBUTYNIN 5 MG TABLET] 60 Tablet 0 Sig: TAKE 1 TABLET BY MOUTH TWICE A DAY Urinary Anticholinergics Protocol Failed - 11/09/2023 8:26 AM Failed - GFR greater than or equal to 30 in past 12 months No results found for: GFRNA Passed - Visit with relevant provider in past 12 months or upcoming 90 days Recent Visits Date Type Provider Dept 08/26/23 Office Visit Zoe Patel MD [facility] 02/25/23 Office Visit Zoe Patel MD [facility] Showing recent visits within past 365 days and meeting all other requirements Future Appointments Date Type Provider Dept 12/03/23 Appointment Jeremiah Lees MD [facility] Blu Showing future appointments within next 90 days and meeting all other requirements FISHER documented in this encounter Plan of Treatment Upcoming Encounters Date Type Department Care Team (Late st Contact Info) Description 12/14/2025 9:30 AM CRAB FISHER [facility] Visit [facility] - Blu [address] [place] [address] Elmira Nielsen, E/M ENGINEER, COTTON TIER #2 [place] [address] 04/19/2026 10:00 AM CDT Office Visit [facility] [address] [place] [address] Jeremiah Lees MD [address] [facility] [facility] [address] [place] [address] documented as of this encounter Visit Diagnoses Not on filedocumented in this encounter Additional Health Concerns Infection Onset Date Last Indicated Resolved Time Respiratory Rule-Out 11/29/2024 11/29/2024 025 8:55 AM CRAB FISHER COVID - 19 11/29/2024 11/29/2024 11/29/2024 8:55 AM CRAB FISHER Influenza 11/29/2024 11/29/2024 12/06/2024 12:1 6 AM CRAB FISHER Assessment Noted Time PHQ-9 Depression Total Score: 0 02/20/20 22 8:00 AM CDT documented as of this encounter Care Teams Timber Sizer Operator Relationship Specialty Start Date End Date Zoe Patel MD PCP - General Family Medicine 03/31/17 03/02/24 Elmira Nielsen, E/M ENGINEER, COTTON TIER [address] [place] [address] PCP - General Advanced Practice Nurse 03/03/24 Jessi Wilson MD Obstetrics & Gynecology 07/25/19 Jeremiah Lees MD [address] [facility] [address] [facility] [address] [place] [address] Consulting Physician Urology 08/12/22 Colten Santa MD [address] [facility] [address] [place] [address] Consulting Physician Colon and Rectal Surgery 10/23/24 documented as of this encounter
--- OUTSIDE RECORDS SUMMARY | 2025-08-31 09:09 | XMS_ITS | Encounter Summary ---
Author Organization [facility] Address [address] [place] [address] Phone Care Team Providers Care Offset Pressman Name Role Phone Zoe Patel MD Primary Care Provider Jessi Wilson MD Unavailable [phone] Jeremiah Lees MD Unavailable [phone] Elmira Nielsen APRN, GEOSPATIAL TECHNOLOGIST Primary Care Provider + Colten Santa MD Unavailable Reason for Visit * Reason Comments Medication Refill Encounter Details Date Type Department Care Team (Late st Contact Info) Description 08/21/[address] [facility] - Family [facility] #2 [place] [id number] [place] [address] [place] [address] Medication Refill Social History Tobacco Use Types [...] Sex Assigned at Female 11/29/2024 6:18 AM COMPRESSOR STATIONS SUPERINTENDENT Legal Sex Female 10:06 PM CDT Gender Identity Female 11/29/2024 6:18 AM COMPRESSOR STATIONS SUPERINTENDENT Sexual Orientation Not on file COVID-19 Exposure Response Date Recorded In the last month, have you been in contact with someone who was confirmed or suspected to have Coronavirus / COVID-19? No / Unsure 08/21/2021 8:25 AM CDT documented as of this encounter Miscellaneous Notes * Telephone Encounter - Luciana Mei RN - 08/21/2021 12:29 PM CDT Copy and pasted from Today's office visit: Other orders - tiZANidine (ZANAFLEX) 2 MG Capsule; Take 2 mg by mouth 2 times daily. - sertraline (ZOLOFT) 25 MG Tablet; Take 1 Tablet by mouth daily. ?? Decrease zoloft to 25 mg for 2 weeks and then 12.5 mg for 2 weeks and then d/c documented in this encounter Plan of Treatment Upcoming Encounters Date Type Department Care Team (Late st Contact Info) Description 12/14/2025 9:30 AM COMPRESSOR STATIONS SUPERINTENDENT [facility] #2 [place] [address] Elmira Nielsen APRN, GEOSPATIAL TECHNOLOGIST #2 [place] [address] 04/19/2026 10:00 AM CDT Office Visit [facility] #2 [place] [address] Jeremiah Lees MD #[address] [address] documented as of this encounter Visit Diagnoses Not on filedocumented in this encounter Additional Health Concerns Infection Onset Date Last Indicated Resolved Time Respiratory Rule-Out 11/29/2024 11/29/2024 025 8:55 AM COMPRESSOR STATIONS SUPERINTENDENT COVID - 19 11/29/2024 11/29/2024 11/29/2024 8:55 AM COMPRESSOR STATIONS SUPERINTENDENT Influenza 11/29/2024 11/29/2024 12/06/2024 12:1 6 AM COMPRESSOR STATIONS SUPERINTENDENT Assessment Noted Time PHQ-9 Depression Total Score: 0 04/22/20 20 8:00 AM CDT documented as of this encounter Care Teams Offset Pressman Relationship Specialty Start Date End Date Zoe Patel MD PCP - General Family Medicine 03/31/17 03/02/24 Elmira Nielsen, QUAL FIELD MANAGER, GEOSPATIAL TECHNOLOGIST #[address] [place] [address] PCP - General Advanced Practice Nurse 03/03/24 Jessi Wilson MD Obstetrics & Gynecology 07/25/19 Jeremiah Lees MD #2 [facility] [address] [place] [address] Consulting Physician Urology 08/12/22 Colten Santa MD #2 [facility] [address] [place] [address] Consulting Physician Colon and Rectal Surgery 10/23/24 documented as of this encounter
--- OUTSIDE RECORDS SUMMARY | 2025-08-31 09:09 | XMS_ITS | Encounter Summary ---
Author Organization [facility] Address [address] [place] [address] Phone Care Team Providers Care Fur Repairer Name Role Phone Zoe Patel MD Primary Care Provider eJssi Wlison MD Unavailable [phone] Jeremiah Lees MD Unavailable [phone] Elmira Nielsen APRN, PROFESSOR OF GEOLOGY Primary Care Provider + Colten Santa MD Unavailable Reason for Visit * Reason Comments Medication Refill Encounter Details Date Type Department Care Team (Late st Contact Info) Description 12/16/2022 Refill [facility] Group - Family [facility] #2 [place] [phone] [place] [address] [place] [address] Medication Refill Social History Tobacco Use Types [...] Sex Assigned at Female 11/29/2024 6:18 AM CANE PACKER Legal Sex Female 10:06 PM CDT Gender Identity Female 11/29/2024 6:18 AM CANE PACKER Sexual Orientation Not on file documented as of this encounter Miscellaneous Notes * Telephone Encounter - Luciana Mei RN - 12/17/2022 9:36 AM CST Medication failed the protocol, provider to review and approve the medication order if appropriate. Requested Prescriptions Pending Prescriptions Disp Refills losartan (COZAAR) 25 MG Tablet [Pharmacy Med Name: LOSARTAN POTASSIUM 25 MG TAB] 90 Tablet 1 Sig: TAKE 1 TABLET BY MOUTH EVERY DAY ARB Protocol Failed - 12/16/2022 7:12 PM Failed - Serum potassium on record in past 12 months No results found for: POTASSIUM, POCTK Failed - GFR on record in past 12 months No results found for: GFRNA Passed - BP on record in the past year Clinician-entered: BP Readings from Last 3 Encounters: 08/20/22 118/72 08/14/22 100/78 02/19/22 112/74 Patient-entered: No data recorded Passed - No positive test in the past 12 months or most recent test was negative Passed - Visit with relevant provider in past year or upcoming 90 days Recent Visits Date Type Provider Dept 08/20/22 Office Visit Zoe Patel MD [facility] 02/19/22 Office Visit Zoe Patel MD [facility] Showing recent visits within past 365 days and meeting all other requirements Future Appointments Date Type Provider Dept 02/25/23 Appointment Zoe Patel MD [facility] Showing future appointments within next 90 days and meeting all other requirements Passed - No active on record PACKER documented in this encounter Plan of Treatment Upcoming Encounters Date Type Department Care Team (Late st Contact Info) Description 12/14/2025 9:30 AM CANE PACKER Office Visit [facility] - Family Medicine Blu [address] [place] [address] Elmira Nielsen, FISHER CLAM, PROFESSOR OF GEOLOGY #2 [place] [address] 04/19/2026 10:00 AM CDT Office Visit [facility] #[address] [place] [address] Jeremiah Lees MD #[address] [facility] [address] [place] [address] documented as of this encounter Visit Diagnoses Diagnosis Hypertension, unspecified type documented in this encounter Additional Health Concerns Infection Onset Date Last Indicated Resolved Time Respiratory Rule-Out 11/29/2024 11/29/2024 025 8:55 AM CANE PACKER COVID - 19 11/29/2024 11/29/2024 11/29/2024 8:55 AM CANE PACKER Influenza 11/29/2024 11/29/2024 12/06/2024 12:1 6 AM CANE PACKER Assessment Noted Time PHQ-9 Depression Total Score: 0 02/20/20 22 8:00 AM CDT documented as of this encounter Care Teams Fur Repairer Relationship Specialty Start Date End Date Zoe Patel MD PCP - General Family Medicine 03/31/17 03/02/24 Elmira Nielsen, FISHER CLAM, PROFESSOR OF GEOLOGY #[address] [place] [address] PCP - General Advanced Practice Nurse 03/03/24 Jessi Wilson MD Obstetrics & Gynecology 07/25/19 Jeremiah Lees MD [address] [facility] [address] [place] [address] Consulting Physician Urology 08/12/22 Colten Santa MD #2 [facility] [address] [place] [address] Consulting Physician Colon and Rectal Surgery 10/23/24 documented as of this encounter
--- OUTSIDE RECORDS SUMMARY | 2025-08-31 09:09 | XMS_ITS | Clinical Summary ---
Author Organization [facility] Address [address] [place] [address] Phone Care Team Providers Care Whitewasher Name Role Phone Unavailable Primary Care Provider Unavailabl e Allergies No known active allergies Medications Cetirizine (ZyrTEC) 10 mg Capsule Take 1 Tablet by mouth daily. Active Active Problems No known active problems Family History Medical History Relation Name Comments Diabetes Father Other Father Hereditary Spas tic Paraperisis Diabetes Maternal Grandfather Heart Disease Maternal Grandfather Cancer Maternal Grandmother Stroke Maternal Grandmother Migraines Mother Cancer Paternal Grandfather Diabetes Paternal Grandmother Stroke Paternal Grandmother Relation Name Status Comments Brother 1 Luciano Alive Brother 2 Donal Alive Father Alive Maternal Grandfather Maternal Grandmother Mother Alive Paternal Grandfather Paternal Grandmother Social History Tobacco Use Types Packs/Day Years Used Date Smoking Tobacco: Never Smokeless Tobacco: Never Alcohol Use Standard Drinks/Week Comments Yes 0 (1 standard drink = 0.6 oz pur e alcohol) Comments No Sex and Gender Information Value Date Recorded Sex Assigned at Not on file Legal Sex Female 11:24 AM CDT Gender Identity Not on file Sexual Orientation Not on file Last Filed Vital Signs Vital Sign Reading Time Taken Comments Blood Pressure 140/84 09/06/2018 1:56 PM PERSONAL CONSULTANT Pulse 90 09/06/2018 1:56 PM PERSONAL CONSULTANT Temperature - - Respiratory Rate - - Oxygen Saturation - - Inhaled Oxygen Concentration - - Weight 58.6 kg (129 lb 3.2 oz) 09/06/2018 1:56 P M PERSONAL CONSULTANT Height 157.5 cm (5' 2) 09/06/2018 1:56 PM PERSONAL CONSULTANT Body Mass Index 23.63 09/06/2018 1:56 PM PERSONAL CONSULTANT Plan of Treatment Health Maintenance Due Date Last Done Comments HEPATITIS B VACCINES (1 of 3 - 19+ 3-dose series) 1998 HPV/Cotest (21-29) 2000 CERVICAL CANCER SCREENING 2009 HPV/Cotest (30-65) 2009 PAP SMEAR 2009 BREAST CANCER SCREENING 2019 COLORECTAL SCREENING 2024 Colorectal Cancer Screening 2024 FIT-DNA Q 3 years 2024 FIT/FOBT Q 1 year 2024 Flex Sig/CT Colonography Q 5 years 2024 INFLUENZA VACCINE (#1) 2025 , 08/28/2021, 08/20/2020, Additional history exists COVID-19 Vaccine (3 - 2024- season) 2025 02/16/2021, 01/26/2021 DTAP/TDAP/TD VACCINES (3 - Td or Tdap) 05/30/2026 05/30/2016, 10/03/2013 HPV VACCINES Aged Out No longer eligi ble based on patient's age to complete this topic Insurance BCBS BLUE ACCESS/TRUE BLUE PPO
--- OUTSIDE RECORDS SUMMARY | 2025-08-31 09:09 | XMS_ITS | Encounter Summary ---
Author Organization [facility] Address [address] [place] [address] Phone Care Team Providers Care Programmable Logic Controller Assembler Name Role Phone Zoe Patel MD Primary Care Provider [phone] Jessi Wilson MD Unavailable [phone] Jeremiah Lees MD Unavailable [phone] Elmira Nielsen APRN, CABLE SYSTEMS INSTALLER Primary Care Provider + Colten Santa MD Unavailable Reason for Visit * Reason Comments Medication Refill Encounter Details Date Type Department Care Team (Late st Contact Info) Description 05/04/2021 Refill [facility] [address] [place] [phone] Charleen Hahn MD [address] [facility] [address] [place] [address] Medication Refill Social History Tobacco Use Types [...] Sex Assigned at Female 11/29/2024 6:18 AM CARDIOPULMONARY TECHNICIAN Legal Sex Female 10:06 PM CDT Gender Identity Female 11/29/2024 6:18 AM CARDIOPULMONARY TECHNICIAN Sexual Orientation Not on file documented as of this encounter Miscellaneous Notes * Telephone Encounter - Charleen Hahn MD - 05/06/2021 11:51 AM CDT Schedule an appointment for her * Telephone Encounter - Mayda Michelle RN - 05/06/2021 6:41 AM CDT Requested Prescriptions Pending Prescriptions Disp Refills ??? oxybutynin (DITROPAN) 5 MG Tablet [Pharmacy Med Name: OXYBUTYNIN 5 MG TABLET] 60 Tablet 0 Sig: TAKE 1 TABLET BY MOUTH TWICE A DAY Patient will need an appointment for future refills. documented in this encounter Plan of Treatment Upcoming Encounters Date Type Department Care Team (Late st Contact Info) Description 12/14/2025 9:30 AM CARDIOPULMONARY TECHNICIAN [facility] [address] [place] [address] Elmira Nielsen APRN, CABLE SYSTEMS INSTALLER [address] [place] [address] 04/19/2026 10:00 AM CDT Office Visit [facility] [address] [place] [address] Jeremiah Lees MD [address] [address] documented as of this encounter Visit Diagnoses Diagnosis Urge incontinence documented in this encounter Additional Health Concerns Infection Onset Date Last Indicated Resolved Time Respiratory Rule-Out 11/29/2024 11/29/2024 025 8:55 AM CARDIOPULMONARY TECHNICIAN COVID - 19 11/29/2024 11/29/2024 11/29/2024 8:55 AM CARDIOPULMONARY TECHNICIAN Influenza 11/29/2024 11/29/2024 12/06/2024 12:1 6 AM CARDIOPULMONARY TECHNICIAN Assessment Noted Time PHQ-9 Depression Total Score: 0 04/22/20 20 8:00 AM CDT documented as of this encounter Care Teams Programmable Logic Controller Assembler Relationship Specialty Start Date End Date Zoe Patel MD PCP - General Family Medicine 03/31/17 03/02/24 Elmira Nielsen, TUMBLING BARREL PAINTER, CABLE SYSTEMS INSTALLER [address] [place] [address] PCP - General Advanced Practice Nurse 03/03/24 Jessi Wilson MD Obstetrics & Gynecology 07/25/19 Jeremiah Lees MD [address] [facility] [address] [place] [address] Consulting Physician Urology 08/12/22 Colten Santa MD [address]2 [facility] [address] [place] [address] Consulting Physician Colon and Rectal Surgery 10/23/24 documented as of this encounter
--- OUTSIDE RECORDS SUMMARY | 2025-08-31 09:09 | XMS_ITS | Encounter Summary ---
Author Organization [facility] Address [address] [place] [address] Phone Care Team Providers Care Ham Pumper Name Role Phone Zoe Patel MD Primary Care Provider Jessi Wilson MD Unavailable [phone] Jeremiah Lees MD Unavailable [phone] Elmira Nielsen APRN, SEASONER HAND Primary Care Provider + Colten Santa MD Unavailable Reason for Visit * Reason Comments Medication Refill Encounter Details Date Type Department Care Team (Late st Contact Info) Description 06/01/2021 Refill [facility] [address] [place] [phone] Charleen Hahn MD [address] [facility] [address] [place] [address] Medication Refill Social History Tobacco Use Types [...] Sex Assigned at Female 11/29/2024 6:18 AM UMBRELLA FINISHER Legal Sex Female 10:06 PM CDT Gender Identity Female 11/29/2024 6:18 AM UMBRELLA FINISHER Sexual Orientation Not on file documented as of this encounter Miscellaneous Notes * Telephone Encounter - Mayda Michelle RN - 06/02/2021 10:52 AM CDT Patient needs an appointment prior to additional refills. documented in this encounter Plan of Treatment Upcoming Encounters Date Type Department Care Team (Late st Contact Info) Description 12/14/2025 9:30 AM UMBRELLA FINISHER [facility] Visit [facility] [address] [place] [address] Elmira Nielsen APRN, SEASONER HAND [address] [place] [address] 04/19/2026 10:00 AM CDT Office Visit [facility] [address] [place] [address] Jeremiah Lees MD #[address] [address] documented as of this encounter Visit Diagnoses Diagnosis Urge incontinence documented in this encounter Additional Health Concerns Infection Onset Date Last Indicated Resolved Time Respiratory Rule-Out 11/29/2024 11/29/2024 025 8:55 AM UMBRELLA FINISHER COVID - 19 11/29/2024 11/29/2024 11/29/2024 8:55 AM UMBRELLA FINISHER Influenza 11/29/2024 11/29/2024 12/06/2024 12:1 6 AM UMBRELLA FINISHER Assessment Noted Time PHQ-9 Depression Total Score: 0 04/22/20 20 8:00 AM CDT documented as of this encounter Care Teams Ham Pumper Relationship Specialty Start Date End Date Zoe Patel MD PCP - General Family Medicine 03/31/17 03/02/24 Elmira Nielsen, CARD GAME OPERATOR, SEASONER HAND [address] [place] [address] PCP - General Advanced Practice Nurse 03/03/24 Jessi Wilson MD Obstetrics & Gynecology 07/25/19 Jeremiah Lees MD #[address] [address] Consulting Physician Urology 08/12/22 Colten Santa MD #[address] [address] Consulting Physician Colon and Rectal Surgery 10/23/24 documented as of this encounter
--- OUTSIDE RECORDS SUMMARY | 2025-08-31 09:09 | XMS_ITS | Encounter Summary ---
Author Organization [facility] Address [address] [place] [address] Phone Care Team Providers Care Plumbing Engineering Draftsperson Name Role Phone Zoe Patel MD Primary Care Provider Jessi Wilson MD Unavailable [phone] Jeremiah Lees MD Unavailable [phone] Elmira Nielsen APRN, RN BUILDING Primary Care Provider + Colten Santa MD Unavailable Reason for Visit * Reason Comments Medication Refill Encounter Details Date Type Department Care Team (Late st Contact Info) Description 09/13/2021 Refill [facility] - [facility] [address] [place] [id number] [place] [address] [place] [address] Medication Refill Social History Tobacco Use Types [...] Sex Assigned at Female 11/29/2024 6:18 AM METAL SPRAYER Legal Sex Female 10:06 PM CDT Gender Identity Female 11/29/2024 6:18 AM METAL SPRAYER Sexual Orientation Not on file COVID-19 Exposure Response Date Recorded In the last month, have you been in contact with someone who was confirmed or suspected to have Coronavirus / COVID-19? No / Unsure 08/21/2021 8:25 AM CDT documented as of this encounter Miscellaneous Notes * Telephone Encounter - Luciana Mei RN - 09/15/2021 8:41 AM CST New Rx 08/21/21 - refills? Medication failed the protocol, provider to review and approve the medication order if appropriate. Requested Prescriptions Pending Prescriptions Disp Refills sertraline (ZOLOFT) 25 MG Tablet [Pharmacy Med Name: SERTRALINE HCL 25 MG TABLET] 30 Tablet Sig: TAKE 1 TABLET BY MOUTH EVERY DAY SSRI (6 Month Refill Only) Protocol Failed - 09/13/2021 8:30 AM Failed - Patient has established therapy with SSRI for at least 6 months Passed - No test in the past 12 months or most recent test was negative Passed - No active on record Passed - Visit with relevant provider in past 6 months or upcoming 90 days Recent Visits Date Type Provider Dept 08/21/21 Office Visit Zoe Patel MD [facility] Showing recent visits within past 182 days and meeting all other requirements Future Appointments No visits were found meeting these conditions. Showing future appointments within next 90 days and meeting all other requirements Passed - Has an encounter in the past 6 months with a depression, anxiety, adjustment disorder, OCD, or PTSD visit diagnosis L SPRAYER documented in this encounter Plan of Treatment Upcoming Encounters Date Type Department Care Team (Late st Contact Info) Description 12/14/2025 9:30 AM METAL SPRAYER Office Visit [facility] [place] [address] Elmira Nielsen APRN, RN BUILDING [address] [place] [address] 04/19/2026 10:00 AM CDT Office Visit [facility] UROLOGY [address] [place] [address] Jeremiah Lees MD [address] [facility] [address] [place] [address] documented as of this encounter Visit Diagnoses Not on filedocumented in this encounter Additional Health Concerns Infection Onset Date Last Indicated Resolved Time Respiratory Rule-Out 11/29/2024 11/29/2024 025 8:55 AM METAL SPRAYER COVID - 19 11/29/2024 11/29/2024 11/29/2024 8:55 AM METAL SPRAYER Influenza 11/29/2024 11/29/2024 12/06/2024 12:1 6 AM METAL SPRAYER Assessment Noted Time PHQ-9 Depression Total Score: 0 04/22/20 20 8:00 AM CDT documented as of this encounter Care Teams Plumbing Engineering Draftsperson Relationship Specialty Start Date End Date Zoe Patel MD PCP - General Family Medicine 03/31/17 03/02/24 Elmira Nielsen, SLASHER OPERATOR, RN BUILDING [address] [place] [address] PCP - General Advanced Practice Nurse 03/03/24 Jessi Wilson MD Obstetrics & Gynecology 07/25/19 Jeremiah Lees MD [address] [facility] [address] [place] [address] Consulting Physician Urology 08/12/22 Colten Santa MD [address] [facility] [address] [place] [address] Consulting Physician Colon and Rectal Surgery 10/23/24 documented as of this encounter
== END 2025-08-31 08:53 | disposition home or self-care (01) ==
LOC: ANHFOHIMG 08:53
PROVIDERS: Visit Provider Nurse Practitioner Obstetrics & Gynecology
DX: Z12.31 Encounter for screening mammogram for malignant neoplasm of breast (principal)
CPT/HCPCS: 77063; 77067